=== PATIENT | female | born 1940 | race Caucasian/White ===

== ENCOUNTER → 2016-10-05 | Outpatient (CLI) | payer MEDICARE, BC ==
[~2016-10-05] MED LIST: ASA CHILDREN'S81 MG PO; COREG DPS6.25 MG PO; MAALOX DPS30 ML PO; MAG-OX400 MG PO; MIRALAX PACKET17 GM PO; MIRALAX17 GM PO; PRAVACHOL20 MG PO; PROTONIX40 MG PO; SENOKOT DPS8.6 MG PO; TUMS DPS500 MG PO; TYLENOL EXTRA500 M1 PO
== END | disposition home or self-care (01) ==
LOC: PTH.S 08:57
DX: Z01.818 Encounter for other preprocedural examination (principal); R00.1 Bradycardia, unspecified; R94.31 Abnormal electrocardiogram [ECG] [EKG]; Z86.79 Personal history of other diseases of the circulatory system; Z79.2 Long term (current) use of antibiotics

== ENCOUNTER 2016-10-23 09:06 | Inpatient (IN) | payer MEDICARE, BC ==
[~2016-10-23] VITALS: Ht 160 cm; Wt 71.3 kg
--- NOTE | 2016-10-30 11:49 | HP ---
ADMIT: 10/23/2016 RM/LOC: [facility] MR#: [id number] [address] [place] [id number] JESSICA LOPEZITH Dionisio [address] [facility] [place] [address] Pre-OP History and Physical SEX: F AGE: 76 : 1940 DATE OF SERVICE: CHIEF COMPLAINT: Right knee pain. HISTORY OF PRESENT ILLNESS: The patient is a 76-year-old white female with a long history of right knee DJD. She had a left total knee arthroplasty done 12 years ago and did well from this. She desires right total knee arthroplasty. PAST MEDICAL HISTORY: Significant for hypertension, coronary artery disease, GERD, she has had bypass, knee replacement. MEDICATIONS: 1. Vitamin D3. 2. Potassium. 3. Magnesium. 4. COQ 10. 5. Lutein 6 mg capsule. 6. Pravastatin. 7. Protonix. 8. Coreg. ALLERGIES: PENICILLIN. SOCIAL HISTORY: Patient does not smoke or regularly drink alcohol. PHYSICAL EXAMINATION: HEENT: Normocephalic and atraumatic. CV: Regular rate and rhythm. LUNGS: Benign. ABDOMEN: Benign. NEUROLOGIC: Awake, alert, and oriented x3. MUSCULAR: Exam shows the patient is short a couple of degrees of full extension of the right knee. Flexes to 130 degrees. Tender over the medial joint line, the patellofemoral joint. There is patellofemoral crepitus. No ligamentous laxity. ADMIT: 10/23/2016 RM/LOC: [facility] MR#: [id number] [address] [place] [id number] ELAINEROSSY SANABRIA [address] [place] [address] Pre-OP History and Physical SEX: F AGE: 76 : 1940 IMAGING DATA: X-rays show right knee DJD, bone on bone medially and narrowing laterally. There is patellofemoral arthrosis. ASSESSMENT AND PLAN: Right knee degenerative joint disease. At this point in time, we will plan right total knee arthroplasty. The patient understands the risks and benefits of the surgical intervention, which include, but not limited to infection, DVT, arthrofibrosis, neurovascular injury, early loosening, , etc., and desires to proceed. She will see Dr. Burgess preoperatively for medical clearance and postoperatively to follow her for anticoagulation and any medical issues that may arise. Please refer to their H and P for any in-depth medical issues and we will plan right total knee arthroplasty. Aime Duke MD/ vicky JOB #: [id number] CC: Aime Duke, Attending Physician UNKNOWN, Family Physician
--- NOTE | 2016-10-30 11:49 | OR ---
ADMIT: 10/23/2016 RM/LOC: [address] [facility] MR#: [id number] [facility]#: [id number] [address] [id number] ROSSY LOPEZ [address] [place] [id number] Operative/Delivery Room Report SEX: F AGE: 76 : 1940 SURGERY DATE: 10/23/2016 SURGEON: Aime Duke MD PREOPERATIVE DIAGNOSIS: Right knee degenerative joint disease. POSTOPERATIVE DIAGNOSE: Right knee degenerative joint disease. PROCEDURE PERFORMED: Right total knee arthroplasty with Jareth and Jareth system, size 2.5 posterior stabilized femoral component, size 2.5 tibial tray, 8 mm tibial insert, size 38 patellar button. FERRYBOAT PILOT: PEDRO Carrillo and Austin Ortiz PA-C. ANESTHESIA: Spinal. ESTIMATED BLOOD LOSS: Minimal. FLUIDS: Per anesthetic record. COMPLICATIONS: No complications. DRAIN: One drain. TOURNIQUET TIME: 57 minutes. CONDITION: The patient returned to the recovery room in fair condition. INDICATIONS: The patient has been having right knee pain refractory to nonoperative treatment due to DJD. She desires total knee arthroplasty. She understands the risks and benefits of the procedure and desired to proceed with the operation. DESCRIPTION OF PROCEDURE: The patient was taken to the OR, transferred to the OR table. Spinal placed. She was laid in the supine position. All bony prominences were well padded. A well-padded tourniquet applied to the right lower extremity. The right lower extremity was prepped and draped in the usual sterile fashion. It was exsanguinated and tourniquet inflated to 350 mmHg. An anterior incision was made starting above the patella and carried down to the medial aspect of the tibial tubercle through the skin and subcutaneous tissue with a knife. Medial arthrotomy was then performed with #10 blade. Patella everted, knee flexed. ACL, PCL, medial, and lateral menisci excised. Step drill was then used to open the intramedullary canal of the femur. I placed an IM alignment guide with the distal femoral cutting block down the intramedullary canal of the femur, set at 5 degrees of valgus cut and 12 mm of resection. I pinned it to the anterior aspect of the distal femur. I cut the distal femur using an oscillating saw. I then sized the femur at a 2.5 after I removed the jig. I then placed the 2.5 four-in-one cutting block on the distal aspect of the femur and pinned it to the distal aspect of the femur. I made ADMIT: 10/23/2016 RM/LOC: [address] [facility] MR#: [id number] [address] [place] [id number] ROSSY LOPEZ [address] [place] [address] Operative/Delivery Room Report SEX: F AGE: 76 : 1940 the 4 appropriate cuts using an oscillating saw. I removed this cutting block, placed the box cutting jig on the distal aspect of the femur. I cut the box out of the distal femur using a reciprocating saw. The proximal tibia was then cut perpendicular to the long axis of the tibial shaft using a proximal tibial cutting guide and oscillating saw. The posterior aspect of the patella was cut, flushed with the posterior aspects of the quadriceps patellar tendons using the patella cutting saw. This was sized to 30 and step drilled with the guide. Trial components were then placed. The size 2.5 tibial tray with 8 mm insert gave excellent range of motion, stability, and patellar tracking after I had placed my trial prosthesis. I then step drilled the femoral component, step drilled and cruciate punched the tibial component. I removed the trial prosthesis and thoroughly irrigated the knee with bacitracin solution and dried it. I then injected Exparel-like compound throughout. I then cemented the patella, femoral, and tibial components into place removing all extraneous cement as it dried. I then impacted the 8 mm insert and the tibial tray. Then, I ran the knee through a range of motion. It had excellent range of motion, stability, and patellar tracking. Thus, one deep drain was then placed. The medial arthrotomy was closed using #1 Vicryl. Subcutaneous tissue was closed using 2-0 Vicryl. Skin was closed using lynn. The wounds were washed, dried, and dressed with sterile Adaptic, 4x4s, ABD, Webril, and Estiven wrap. An ice pad was placed on top of the Estiven wrap. The patient was then transferred back to recovery room after the tourniquet was let down in fair condition. Aime Duke MD/ vicky JOB #: [id number] CC: Aime Duke, Attending Physician Serjio Burgess, Family Physician
[2016-11-03] MEDS ORDERED: MAG-OX400 MG PO (09:07)
[2016-11-03] MEDS ORDERED: MIRALAX17 GM PO (09:07)
[2016-11-03] MEDS ORDERED: COREG DPS6.25 MG PO (09:07)
[2016-11-03] MEDS ORDERED: PROTONIX40 MG PO (09:08)
[2016-11-03] MEDS ORDERED: TYLENOL EXTRA500 M1 PO (09:08)
[2016-11-03] MEDS ORDERED: SENOKOT DPS8.6 MG PO (09:08)
[2016-11-03] MEDS ORDERED: PRAVACHOL20 MG PO (09:08)
[2016-11-03] MEDS ORDERED: ASA CHILDREN'S81 MG PO (09:09)
[2016-11-03] MEDS ORDERED: MAALOX DPS30 ML PO (09:10)
[2016-11-03] MEDS ORDERED: MIRALAX PACKET17 GM PO (09:10)
[2016-11-03] MEDS ORDERED: TUMS DPS500 MG PO (09:11)
--- NOTE | 2016-11-13 13:40 | DS ---
ADMIT: 10/23/2016 RM/LOC: [address] [facility] MR#: [id number] [facility]#: [id number] [address] [id number] ROSSY LOPEZ [address] [place] [address] General Discharge Summary SEX: F AGE: 76 : 1940 ADMISSION DATE: 10/23/2016 DISCHARGE DATE: 10/26/2016 DATE OF SURGERY: 10/23/2016. REASON FOR ADMISSION: Elective right total knee arthroplasty. HISTORY OF PRESENT ILLNESS: A 76-year-old, white female with longstanding history of right knee degenerative joint disease. She has had left total knee arthroplasty done 12 years ago in the past. Did well from this. She desires to proceed with a right total knee arthroplasty at this time. PREOPERATIVE DIAGNOSIS: Right knee degenerative joint disease. POSTOPERATIVE DIAGNOSIS: Right knee degenerative joint disease. PROCEDURE PERFORMED: Right total knee arthroplasty. SURGEON: Aime Duke MD. ASSISTANTS: 1. PEDRO Carrillo. 2. Austin Ortiz PA-C. ANESTHESIA: Spinal. ESTIMATED BLOOD LOSS: Minimal. COMPLICATIONS: None. PAST MEDICAL HISTORY: 1. Hypertension. 2. Coronary artery disease. 3. GERD. 4. Previous bypass surgery. 5. Previous total knee arthroplasty. MEDICAL COURSE: The patient was admitted on 10/23/2016, discharged 10/26/2016, with a length of stay 3 days and discharge disposition to snf facility. While the patient in the hospital, Orthopedics saw them each day to answer any question and address any concerns at that time. The patient was having some issues with sleepiness, nausea, and strength of the pain medication, so adjustments were made until we successfully had a right dose. The patient's vital signs stable and within normal limits. While in the hospital, her hemoglobin fell to a low of 8.9. The patient also worked with occupational and physical therapy services. No questions from either libertarian involving that. Overall, the patient handled the acute postop phase of the procedure very well. Prior to discharge, the patient met with Social Work Services to discuss the discharge disposition in which snf ADMIT: 10/23/2016 RM/LOC: [address] [facility] MR#: [id number] [address] [id number] ROSSY LOPEZ [address] [facility] [place] [address] General Discharge Summary SEX: F AGE: 76 : 1940 facility was decided upon and all agreed. Instructions and final questions and concerns were answered by the Orthopedics before the patient was discharged. DISCHARGE MEDICATIONS: 1. MiraLAX 17 g p.o. daily. 2. Pravachol 20 mg p.o. daily. 3. Protonix 40 mg p.o. daily. 4. Senokot 1 tab p.o. b.i.d. 5. Tylenol Extra Strength 500 mg p.o. every 6 hours. 6. Ultram 25 to 50 mg every 8 hours. 7. Xarelto 10 mg daily for 7 days. DISCHARGE DIAGNOSIS: Right knee degenerative joint disease, status post elective right total knee arthroplasty. DISCHARGE INSTRUCTIONS: The patient was asked to follow up with Orthopedics 2 weeks following date of surgery. They are going to start outpatient physical therapy once they get snf facility. Wear the JHOANA hose and leg immobilizer at night for the first 4 to 6 weeks. They were asked to contact Orthopedic Clinic if they had any questions or concerns prior to the first followup appointment. Follow up with primary care provider as needed. PEDRO Wong / Aime Duke MD / vicky JOB #: [id number] CC: Aime Duke MD, Attending Physician Serjio Burgess MD, Family Physician
== END 2016-10-26 11:01 | DRG 470 ==
LOC: 5MS 11:32 → WOR 11:32 → 5MS 16:03
PROVIDERS: ADMIT Orthopaedic Surgery
PROC: 0SRC0J9 Replacement of Right Knee Joint with Synthetic Substitute, Cemented, Open Approach (ICD-10-PCS; principal; 2016-10-23)
DX: M17.11 Unilateral primary osteoarthritis, right knee (principal); D62 Acute posthemorrhagic anemia; I10 Essential (primary) hypertension; J30.9 Allergic rhinitis, unspecified; E78.5 Hyperlipidemia, unspecified; R09.02 Hypoxemia; I25.10 Atherosclerotic heart disease of native coronary artery without angina pectoris; K21.9 Gastro-esophageal reflux disease without esophagitis; Z95.1 Presence of aortocoronary bypass graft; Z96.652 Presence of left artificial knee joint